=== PATIENT | female | born 2000 | race Caucasian/White ===

== ENCOUNTER 2024-04-27 15:34 | Emergency (ER) | payer SELFPAY ==
[2024-04-27 15:58] LABS: BASOPHILS ABSOLUTE AUTO 0.02 K/uL (0.00-0.20); BASOPHILS PERCENT AUTO 0.3 % (0.0-1.0); EOSINOPHILS ABSOLUTE AUTO 0.08 K/uL (0.00-0.45); EOSINOPHILS PERCENT AUTO 1.4 % (0.0-6.0); HEMOGLOBIN 12.2 g/dL (12.0-16.0); IMMATURE GRAN ABSOLUTE AUTO 0.01 K/uL (0.00-0.05); IMMATURE GRAN PERCENT AUTO 0.2 % (0.0-0.4); LYMPHOCYTES ABSOLUTE AUTO 1.75 K/uL (1.00-4.80); LYMPHOCYTES PERCENT AUTO 29.7 % (24.0-44.0); MEAN CORPUSCULAR HEMOGLOBIN 28.9 pg (28.0-32.0); MEAN CORPUSCULAR VOLUME 87.7 fL (83.0-99.0); MEAN PLATELET VOLUME 9.1 fL (9.4-12.3); MONOCYTES ABSOLUTE AUTO 0.35 K/uL (0.00-0.80); MONOCYTES PERCENT AUTO 5.9 % (0.0-8.0); NEUTROPHILS ABSOLUTE AUTO 3.68 K/uL (1.80-7.70); NEUTROPHILS PERCENT AUTO 62.5 % (41.0-71.0); PLATELET COUNT,PLT 213 K/uL (150-400); RED BLOOD CELL COUNT 4.22 M/uL (4.10-5.30); WHITE BLOOD CELL COUNT,WBC 5.89 K/uL (3.9-11.3)
[2024-04-27 16:38] LABS: A/G RATIO 1.1 (0.9-1.6); BILIRUBIN TOTAL 0.6 mg/dL (0.2-1.0); CALCIUM 9.1 mg/dL (8.5-10.1); CARBON DIOXIDE,CO2 27.8 mmol/L (21.0-32.0); CREATININE 0.9 mg/dL (0.6-1.0); EST CRCL DRUG DOSING (CG) 93.73 mL/min; POTASSIUM,K 3.6 mmol/L (3.5-5.1); PROTEIN TOTAL,TP 7.5 g/dL (6.4-8.2)
== END 2024-04-27 17:51 | disposition home or self-care (01) ==
LOC: MW.ED 15:34
DX: O20.0 Threatened abortion (principal); Z3A.09 9 weeks gestation of pregnancy; Z75.8 Other problems related to medical facilities and other health care; Z79.899 Other long term (current) drug therapy
CPT/HCPCS: 36415; 76817; 76817-26; 80053; 84702; 85025; 86900; 86901; 99284